=== PATIENT | female | born 1950 | race Caucasian/White ===

== ENCOUNTER → 2018-04-27 | Outpatient (CLI) | payer MEDICARE, OTHER ==
[~2018-04-27] MED LIST: ADVAIR; ALBU8.5H IH; ASCO-182 PO; CALC1TAB32 PO; FAMO-67 PO; FLU180SY11 IM; FLU60SYR30 IM ONLY; FLUT1DIS28 IH; HYDR453.8 TP; IBAN150T6 PO; MAXAIR; PNEU0.5D3 IM; TRIA15OI20 TOP; TRIA15OI20 TP; VITA1TAB8 PO; [UNRECOGNIZED DRUG - CODE]
[2018-04-27 07:30] LABS: PLATELET COUNT, AUTOMATED 244 K/uL (150-450)
[2018-04-27 08:16] LABS: LDL CHOLESTEROL 111 mg/dl
== END ==
LOC: LAB 07:10
PROVIDERS: ATTEND Internal Medicine
DX: J45.909 Unspecified asthma, uncomplicated (principal); E78.5 Hyperlipidemia, unspecified
CPT/HCPCS: 36415; 81001; 82040; 82247; 82310; 82374; 82435; 82465; 82565; 82947; 83718; 84075; 84132; 84155; 84295; 84443; 84450; 84460; 84478; 84520; 85025